=== PATIENT | male | born 1935 | race Caucasian/White ===

== ENCOUNTER → 2020-02-21 | Outpatient (CLI) | payer MEDICARE, OTHER ==
[~2020-02-21] VITALS: Ht 180.3 cm; Wt 68.5 kg
[2020-02-21 14:10] VITALS: BP 145/67
== END | disposition home or self-care (01) ==
LOC: M.ULTRA 12:41
PROVIDERS: ATTEND Radiology Radiation Oncology
DX: C61 Malignant neoplasm of prostate (principal); I10 Essential (primary) hypertension; E03.9 Hypothyroidism, unspecified; Z79.899 Other long term (current) drug therapy